=== PATIENT | male | born 1970 | race Two or more races ===

== ENCOUNTER 2022-03-23 17:19 | Emergency (ER) | payer SELFPAY ==
[~2022-03-23] VITALS: Ht 172.7 cm; Wt 83.9 kg
[2022-03-23 19:57] VITALS: BP 119/70
== END 2022-03-23 22:08 | disposition home or self-care (01) ==
LOC: ER 21:01
DX: F10.129 Alcohol abuse with intoxication, unspecified (principal); Y90.9 Presence of alcohol in blood, level not specified